=== PATIENT | male | born 1955 | race Caucasian/White ===

== ENCOUNTER → 2016-12-27 | Day surgery (SDC) | payer OTHER ==
[~2016-12-27] MED LIST: ALLOPURINOL300 MG PO; AMLODIPINE BESY10 MG PO; ASPIRIN81 MG PO; BENAZEPRIL HCL40 MG PO; BISACODYL5 MG PO; BUMEX2 MG PO; CIPRO PO; COMBIVENT U/D3 M2 INH; COUMADIN PO; DIGOX0.25 MG PO; ELIQUIS5 MG PO; EXFORGE 10-3201 TAB; EXFORGE 10-3201 TAB PO; FLOMAX0.4 M1 DOB; HCTZ PO; HYDROCHLOROTHIA25 MG PO; HYDROCODON-ACE1 EAC7 PO; INDOMETHACIN50 MG PO; LORTAB 101 TAB 10/5 DOB; LORTAB 7.5-5001 TAB PO; LOTREL; LOTREL 10/20 MG1 CAP PO; LOTREL PO; MAGNESIUM CITR296 M1 PO; METOPROLOL SUCC25 MG PO; MEVACOR PO; MICONAZOLE NITR MC; PANTOPRAZOLE SO40 MG PO; PERCOCET 51 UDTAB 5/ DOB; PHENERGAN PR; PHENERGAN25 MG PO; PROTONIX20 MG PO; WARFARIN SODIU7.5 MG PO
--- NOTE | ~2016-12-27 | OR ---
Unit #: [id number] #: [id number] Patient: RENATO FROST [id number] [facility] [address] [facility]. [place], [place] [address] [id number] O MR#: [id number] NAME: RENATO FROST ROOM: Date of Procedure: 12/27/2016 Admission Date: 12/27/2016 Surgeon: Gopi Rico M.D. : 1955 Attending Physician: Gopi Rico M.D. Primary Care Physician: Maximino Du M.D. OPERATIVE REPORT PRIMARY CARE PHYSICIAN Dr. Dash Du. PREOPERATIVE DIAGNOSIS Family history of colon cancer. POSTOPERATIVE DIAGNOSES 8 mm polyp in transverse colon, sigmoid diverticulosis. PROCEDURE PERFORMED Colonoscopy to cecum with cold biopsy forceps polypectomy x1. ANESTHESIA Monitored anesthesia. INDICATIONS FOR PROCEDURE A morbidly obese 61-year-old gentleman with a family history of colon cancer, is due for surveillance. DESCRIPTION OF PROCEDURE The patient was admitted to [facility], positively identified, and transported to the endoscopy unit. After appropriate monitoring and positioning, he was sedated by the nurse leather skinner. On rectal examination, there was no local anorectal pathology, and prostate was normal to digital examination. Colonoscope was passed through the anal verge and throughout the extent of the colon to the cecum where the appendiceal orifice and ileocecal valve were photo-documented. On careful antegrade and retrograde visualization, a single 8 mm polyp was identified in the transverse colon. It was completely excised using the cold biopsy forceps. The rest of the examination revealed [id number] diverticulosis in the sigmoid colon, but no other polyps or mucosal lesions. In the rectal vault, there was no internal hemorrhoidal disease. The patient tolerated the procedure well and was transferred recovery in stable condition. Findings were discussed with his . We will call with results of the pathological evaluation of the polyp and recommend followup at that time. In the interim, he was recommended to use a high-fiber diet and resume his Eliquis on 12/28/2016 after 24 hours of postop mucosal healing. Dictated by... Gopi Rico M.D. Unit #: [id number] #: [id number] Patient: RENATO FROST RS/modl TD: 12/28/2016 01:48 JOB #: [id number] OPERATIVE REPORT Page 1 of 1 X Gopi Rico MD PROCEDURE OPERATIVE NOTE
--- NOTE | ~2016-12-27 | HP ---
Unit #: [id number] #: [id number] Patient: RENATO NARVAEZ [id number] [address] [place], [place] [address] [id number] O MR#: [id number] NAME: RENATO NARVAEZ ROOM: Age: 61 Sex: M Admission Date: 12/27/2016 : 1955 Attending Physician: Gopi Rico M.D. Primary Care Physician: Maximino Du M.D. HISTORY AND PHYSICAL HISTORY Mr. Narvaez is a 61-year-old gentleman with a family history of colon cancer who is due for surveillance colonoscopy. He is, otherwise, asymptomatic. PAST MEDICAL HISTORY Obstructive sleep apnea, morbid obesity, atrial fibrillation, hypercholesterolemia, hypertension, bilateral knee replacements, back surgery, hand surgery, knee surgery, heartburn, previous colonoscopy. ALLERGIES Codeine. MEDICATIONS Medications include Allopurinol, Mevacor, Eliquis, Lanoxin, Metoprolol and Hydrochlorothiazide. FAMILY HISTORY Colon cancer. IMMUNIZATIONS Up to date. He has had a recent flu vaccine. SOCIAL HISTORY . Four children. Moderate alcohol drinker. Denies the use of tobacco. He is on disability. REVIEW OF SYSTEMS Review of systems otherwise unremarkable. PHYSICAL EXAMINATION VITAL SIGNS: Temperature is 97, pulse 57, respirations 16, blood pressure 137/86. GENERAL: Awake, alert and oriented. HEENT: Unremarkable. CARDIAC EXAM: Regular rhythm. LUNGS: Clear. ABDOMEN: Soft. EXTREMITIES: No edema. NEUROLOGIC: Grossly intact. ASSESSMENT AND PLAN A 61-year-old gentleman with a family history of colon cancer due for surveillance colonoscopy. I discussed colonoscopy, including risks, Unit #: [id number] #: [id number] Patient: RENATO NARVAEZ benefits, complications and bowel prep. He understands and agrees to proceed. Dictated by Catina Beatty/marc TD: 12/27/2016 07:56 JOB #: [id number] HISTORY AND PHYSICAL Page 1 of 1 X Gopi Rico MD HISTORY AND PHYSICAL
== END | disposition home or self-care (01) ==
LOC: COPS 12-24 07:00
PROVIDERS: Specialist
PROC: 0DBL8ZX Excision of Transverse Colon, Via Natural or Artificial Opening Endoscopic, Diagnostic (ICD-10-PCS; principal; 2016-12-27 07:00)
DX: Z12.11 Encounter for screening for malignant neoplasm of colon (principal); D12.3 Benign neoplasm of transverse colon; Z80.0 Family history of malignant neoplasm of digestive organs; K57.30 Diverticulosis of large intestine without perforation or abscess without bleeding; E66.01 Morbid (severe) obesity due to excess calories; Z68.43 Body mass index [BMI] 50.0-59.9, adult; I48.91 Unspecified atrial fibrillation; G47.33 Obstructive sleep apnea (adult) (pediatric); I11.0 Hypertensive heart disease with heart failure; I50.9 Heart failure, unspecified; Z79.01 Long term (current) use of anticoagulants; Z79.899 Other long term (current) drug therapy; Z99.81 Dependence on supplemental oxygen; Z88.5 Allergy status to narcotic agent; Z96.653 Presence of artificial knee joint, bilateral; Z89.422 Acquired absence of other left toe(s)
CPT/HCPCS: 88305